=== PATIENT | female | born 1980 | race Caucasian/White ===

== ENCOUNTER 2017-10-11 05:15 | Emergency (ER) | payer OTHER, SELFPAY ==
[2017-10-11 05:43] LABS: Bilirubin Negative (Negative); Blood, Urine Negative (Negative); Clarity Clear (Clear); Glucose, Urine (Dipstick) Negative (Negative); Leukocyte Negative (Negative); Nitrite Negative (Negative); Protein, Urine (Dipstick) Trace mg/dL (Neg-Trace); Urobilinogen 0.2 mg/dL (0.2-1.0); pH, Urine 5.5 (5.0-9.0)
[2017-10-11 05:44] LABS: Specific Gravity, Urine 1.023 (1.002-1.036)
== END 2017-10-11 06:37 | disposition home or self-care (01) ==
LOC: NAV ERS 05:15
DX: R10.2 Pelvic and perineal pain (principal); R42 Dizziness and giddiness
CPT/HCPCS: 81003; 99284